=== PATIENT | male | born 1975 ===

== ENCOUNTER 2017-06-30 11:44 | Emergency (ER) | payer OTHER, SELFPAY ==
[2017-06-30 11:50] VITALS: BP 135/85; PULSE 95; TEMP 97; O2SAT 100
[2017-06-30 11:51] VITALS: BMI 28.7
[2017-06-30] MEDS ORDERED: Lidocaine 1% (10 ml) Inj INFIL ONE (12:13)
[2017-06-30] MEDS ORDERED: Lidocaine 1% w Epi 1:100,000 Inj ONE (12:23)
--- NOTE | 2017-06-30 12:23 | ED PDOC ---
HPI: General Adult Time Seen by Provider: 06/30/17 12:08 Chief Complaint (Nursing): Abnormal Skin Integrity Chief Complaint (Provider): Abnormal Skin Integrity History Per: Patient History/Exam Limitations: no limitations Onset/Duration Of Symptoms: Days (x8) Current Symptoms Are (Timing): Still Present Additional Complaint(s): Chucho Garcia is a 42 year old male with a past medical history of hypertension, who is presenting to the ER for evaluation of painful swelling to his left leg, onset 8 days ago. Patient states that he took Tylenol yesterday with no relief of symptoms, and reports a subjective fever. He denies any chills , trauma, history of diabetes, or usage of any medications today. Patient offers no other medical complaints at this time. PMD: Mp Castro Past Medical History Reviewed: Historical Data, Nursing Documentation, Vital Signs Vital Signs: Last Vital Signs Temp 97 F L 06/30/17 11:50 Pulse 95 H 06/30/17 11:50 Resp BP 135/85 06/30/17 11:50 Pulse Ox 100 06/30/17 12:28 - Medical History PMH: HTN (STATES DOESNT TAKE MEDS,) Denies: Diabetes - Surgical History Surgical History: Appendectomy - Family History Family History: States: Unknown Family Hx - Immunization History Hx Tetanus Toxoid Vaccination: No Hx Influenza Vaccination: No Hx Pneumococcal Vaccination: No - Home Medications Home Medications: Ambulatory Orders Medication Instructions Recorded Cephalexin [cephalexin] 500 mg PO Q6 #28 cap 06/30/17 Sulfamethoxazole/Trimethoprim 2 tab PO BID #28 tab 06/30/17 [Bactrim DS 800 mg-160 mg] - Allergies Allergies/Adverse Reactions: Allergies Allergy/AdvReac Type Severity Reaction Status Date / Time No Known Allergies Allergy Verified 10/13/14 21:14 Review of Systems ROS Statement: Except As Marked, All Systems Reviewed And Found Negative Constitutional: Positive for: Fever (subjective). Negative for: Chills, Other ( trauma) Musculoskeletal: Positive for: Leg Pain (and swelling) Physical Exam - Reviewed Nursing Documentation Reviewed: Yes Vital Signs Reviewed: Yes - Physical Exam Appears: Positive for: Non-toxic, No Acute Distress Head Exam: Positive for: ATRAUMATIC, NORMAL INSPECTION, NORMOCEPHALIC Skin: Positive for: Normal Color Extremity: Positive for: Normal ROM, Other ((+) left distal posterior left thigh : 4 cm x 4 cm erythematous fluctuant mass, (-) streaking) Neurologic/Psych: Positive for: Alert, Oriented. Negative for: Motor/Sensory Deficits - ECG O2 Sat by Pulse Oximetry: 100 (RA) Pulse Ox Interpretation: Normal Medical Decision Making Medical Decision Making: Time: 12:13 Plan: --Lidocaine Hydrochloride 3 ml INFIL --Tetanus prophylaxis administered --Return to ED in 48 hours for wound check Scribe Attestation: Documented by Cammie Chaparro, acting as a scribe for Aguilar Cardona PA-C. Provider Scribe Attestation: All medical record entries made by the Scribe were at my direction and personally dictated by me. I have reviewed the chart and agree that the record accurately reflects my personal performance of the history, physical exam, medical decision making, and the department course for this patient. I have also personally directed, reviewed, and agree with the discharge instructions and disposition. Procedures - Time-Out Type of Procedure: Incision and drainage Site of Procedure: L leg Correct Patient (with visual ID + MR# on ID Band): Yes Correct Procedure: Yes Correct Site Marked: Yes PA/Tech: Dulce - Incision and Drainage Blade Size: 11 I & D Procedure: betadine prep, sterile drapes applied, sterile dressing applied , gauze wick placed Progress: Patient tolerated procedure well. Disposition - Clinical Impression Clinical Impression: Abscess - Patient ED Disposition Is Patient to be Admitted: No - Disposition Referrals: [facility] [Outside] Disposition: Routine/Home Disposition Time: 13:06 Condition: STABLE Additional Instructions: Return to ED in 48 hours for wound check. Return to ED immediately if fever develops or redness or swelling worsen. Prescriptions: Cephalexin [cephalexin] 500 mg PO Q6 #28 cap Sulfamethoxazole/Trimethoprim [Bactrim DS 800 mg-160 mg] 2 tab PO BID #28 tab Instructions: Abscess Incision and Drainage Forms: [facility] (Welsh) Print Language: JAPANESE
[2017-06-30] MEDS ORDERED: Tdap Vaccine 0.5 ml Vial (10-64 yrs) IM ONE ×2 (13:04→13:08)
== END 2017-06-30 13:44 | disposition home or self-care (01) ==
LOC: H.ER 11:44
DX: L02.415 Cutaneous abscess of right lower limb (principal); I10 Essential (primary) hypertension; Z23 Encounter for immunization

== ENCOUNTER 2017-07-02 10:14 | Emergency (ER) | payer OTHER ==
[2017-07-02 10:14] VITALS: BMI 28.7
--- NOTE | 2017-07-02 13:01 | ED PDOC ---
HPI: Wound Care - HPI Time Seen by Provider: 07/02/17 10:48 Chief Complaint (Nursing): Wound Check Chief Complaint (Provider): wound check History Per: Patient Exam Limitations: no limitations Onset/Duration Of Symptoms: Days (2) Current Symptoms Are (Timing): Still Present Location Of Injury: Left: Leg Quality Of Symptoms: Draining Severity: Mild Additional History Per: Patient Past Medical History Vital Signs: Last Vital Signs Temp 98.1 F 07/02/17 10:23 Pulse 73 07/02/17 10:23 Resp 20 07/02/17 10:23 BP 123/73 07/02/17 10:23 Pulse Ox 99 07/02/17 10:23 - Medical History PMH: HTN (STATES DOESNT TAKE MEDS,) Denies: Diabetes - Surgical History Surgical History: Appendectomy - Family History Family History: States: Unknown Family Hx - Immunization History Hx Tetanus Toxoid Vaccination: No Hx Influenza Vaccination: No Hx Pneumococcal Vaccination: No - Home Medications Home Medications: Ambulatory Orders Medication Instructions Recorded Cephalexin [cephalexin] 500 mg PO Q6 #28 cap 06/30/17 Sulfamethoxazole/Trimethoprim 2 tab PO BID #28 tab 06/30/17 [Bactrim DS 800 mg-160 mg] - Allergies Allergies/Adverse Reactions: Allergies Allergy/AdvReac Type Severity Reaction Status Date / Time No Known Allergies Allergy Verified 10/13/14 21:14 Review of Systems Skin: Positive for: Other (left leg, above knee: abscess that has been drained and incised two days ago; wound still draining and pt has not taken abx) Physical Exam - Reviewed Nursing Documentation Reviewed: Yes Vital Signs Reviewed: Yes - Physical Exam Appears: Positive for: Well, Non-toxic, No Acute Distress. Negative for: Uncomfortable Head Exam: Positive for: ATRAUMATIC, NORMAL INSPECTION, NORMOCEPHALIC Pulses-Carotid (L): 2+ Pulses-Carotid (R): 2+ Pulses-Radial (L): 2+ Pulses-Radial (R): 2+ Extremity: Positive for: Other (see HPI) Lymphatic: Positive for: Normal Exam - ECG O2 Sat by Pulse Oximetry: 99 Medical Decision Making Medical Decision Making: wound check for I&D abscess; packing removed and wound covered Disposition - Clinical Impression Clinical Impression: Wound abscess, Encounter for wound re-check - Patient ED Disposition Is Patient to be Admitted: No Doctor Will See Patient In The: Office Counseled Patient/Family Regarding: Diagnosis, Need For Followup, Rx Given - Disposition Referrals: [facility] [Outside] Disposition: Left W/O Being Seen Disposition Time: 13:04 Condition: GOOD Additional Instructions: take medication as prescribed Forms: [facility] (Italian) Print Language: [place]AST [place]
[2017-07-02 13:09] VITALS: BP 128/78; PULSE 78; RESP 19; TEMP 96.7; O2SAT 98
== END 2017-07-02 13:08 | disposition home or self-care (01) ==
LOC: H.ER 10:14
DX: Z48.02 Encounter for removal of sutures (principal); I10 Essential (primary) hypertension